=== PATIENT | female | born 2000 | race Caucasian/White ===

== ENCOUNTER 2019-09-02 00:27 | Inpatient (IN) | payer BC, SELFPAY ==
[~2019-09-02] VITALS: Ht 154.9 cm; Wt 88.0 kg
[2019-09-02] MEDS ORDERED: LAMI1TAB9 PO (01:14)
[2019-09-02] MEDS ORDERED: LEXA1TAB2 PO (01:14)
[2019-09-02] MEDS ORDERED: HM V4000 PO ×2 (01:14→02:42)
[2019-09-02] MEDS ORDERED: LEVOTAB10 PO (01:14)
[2019-09-02] MEDS ORDERED: VITA200028 PO (02:42)
[2019-09-02] MEDS ORDERED: PATIENT COMMENTS (02:46)
[2019-09-02] MEDS ORDERED: OLANZapine ORAL DISINTEGRATING TAB 5MG PO PRN (06:30)
[2019-09-02] MEDS ORDERED: traZODone 50 MG TAB PO PRN (06:30)
[2019-09-02] MEDS ORDERED: ACETAMINOPHEN TAB 650MG DOSE (2X325MG) PO PRN (06:30)
[2019-09-02] MEDS ORDERED: MAALOX 30 ML SUSP *UDC PO PRN (06:30)
[2019-09-02] MEDS ORDERED: MOM 30ML SUSPENSION UDC PO PRN (06:30)
[2019-09-02 10:31] VITALS: BP 140/80
--- NOTE | 2019-09-02 17:20 | HPEPDOC ---
General Date of Admission Sep 02, 2019 at 06:20 Date of Service: Sep 02, 2019 Attending Physician: MARIO HUNT MD Chief Complaint The patient is a 18-year-old female admitted with a reason for visit of Unspecified Depressive Disorder. Exam Limitations: No limitations Timing/Duration: Getting worse Severity: Severe Associated Symptoms: Other (labile mood with passive SI) History of Present Illness 18 yo woman with bipolar II disorder with a history of self harm with cutting who presented with labile mood, passive SI and recent L wrist cutting and transferred from an outside hospital to [facility]. She reports some insomnia and stress pertaining to nursing school as well as mood lability but otherwise feels physically well with no chronic physical illnesses. Home Medications Scheduled Ergocalciferol (Vitamin D2) (Vitamin D2) 2,000 Unit Tablet, 2,000 UNIT PO DAILY, (Reported) Escitalopram Oxalate (Lexapro) 20 Mg Tablet, 30 MG PO DAILY, (Reported) Lamotrigine (Lamictal) 200 Mg Tablet, 400 MG PO QAM, (Reported) Levocetirizine Dihydrochloride (Levocetirizine Dihydrochloride) 5 Mg Tablet, 5 MG PO DAILY, (Reported) Miscellaneous Medications [Patient Comments] , (Reported) WILL VERIFY MEDICATINS WITH PHARMACY WHEN THEY OPEN Allergies Coded Allergies: amoxicillin (Verified Allergy, Unknown, 09/02/19) Uncoded Allergies: Lactose Intolerant (Adverse Reaction, Intermediate, 09/02/19) Past Medical History Medical History Bipolar disorder II Surgical History None Family History Significant Family History: No pertinent family hx Social History * Smoker: former Smoker Alcohol: Denies Drugs: marijuana Recent Travel/Sick Contacts: Denies: Recent travel, Recent sick contacts Psychosocial History: Bipolar, Depression, Other (SI) A-FIB/CHADSVASC A-FIB History Current/History of A-Fib/PAF?: No Current PO Anticoag Therapy: No Age/Risk Factor Scoring CHADSVASC: CHADSVASC Response (Comments) Value Age Risk Factor Age < 65 years old 0 Gender Risk Factor Female 1 Hx of CHF No 0 Hx of HTN No 0 Hx of Stroke/TIA/or VTE No 0 Hx of Diabetes No 0 Hx of Vascular Disease No 0 Total 1 Treatment Treatment ordered: NONE Reason Anticoagulant not given: Not indicated/[id number] Review of Systems Constitutional: Denies: Chills, Fever, Night Sweats Eyes: Denies: Pain, Vision change ENT: Denies: Head Aches, Ear Pain, Dysphagia Skin: Denies: Rash, Lesions, Breakdown Pulmonary: Denies: Dyspnea, Cough Cardiovascular: Denies: Chest Pain, Palpitations, Orthopnea, Paroxysmal Noc. Dyspnea, Lt Headedness Gastrointestinal: Denies: Nausea, Vomiting, Abdominal Pain, Diarrhea Genitourinary: Denies: Dysuria, Frequency, Incontinence, Retention Hematologic: Denies: Bruising, Bleeding Excessively Endocrine: Denies: Polydipsia, Polyphagia, Polyuria, Heat Intolerance, Cold Intolerance, Other Endocrine Sx Musculoskeletal: Denies: Neck Pain, Back Pain, Joint Pain, Muscle Pain, Spasms Neurological: Denies: Weakness, Numbness, Change in speech, Confusion Psych: Reports: Depression, Thoughts of Self Harm (with passive suicidal tho ughts in addition to cutting) Physical Examination General Exam: Positive: Alert, No Acute Distress, Other (obese) Eye Exam: Positive: PERRLA, Conjunctiva & lids normal, EOMI; Negative: Sclera icteric ENT Exam: Positive: Atraumatic, Mucous membr. moist/pink, Pharynx Normal Neck Exam: Positive: Supple; Negative: JVD, thyromegaly Chest Exam: Positive: Clear to auscultation, Normal air movement Heart Exam: Positive: Rate Normal, Regular Rhythm, Normal S1, Normal S2; Negative: Murmurs, Rubs Abdomen Exam: Positive: Normal bowel sounds, Soft; Negative: Tenderness, Hepatospenomegaly Extremity Exam: Positive: Normal pulses; Negative: Clubbing, Cyanosis, Edema Skin Exam: Positive: Nl turgor and temperature, Rash Neuro Exam: Positive: Normal Gait, Normal Speech, Cranial Nerves 3-12 NL, Reflexes 2+ Psych Exam: Positive: Oriented x 3; Negative: Mood NL (depressed mood, flat affect at this time) Vital Signs Vital Signs Date Time Temp Pulse Resp B/P (MAP) Pulse Ox O2 Delivery O2 Flow Rate FiO2 09/02/19 11:18 Room Air 09/02/19 10:31 98.1 88 18 140/80 (100) 09/02/19 06:13 99 Assessment/Plan 18 yo woman with bipolar II disorder with a history of self harm with cutting who presented with labile mood, passive SI and recent L wrist cutting and transferred from an outside hospital to [facility]. She reports some insomnia and stress pertaining to nursing school as well as mood lability but otherwise feels physically well with no chronic physical illnesses. Medicine was asked to do a physical examination that was grossly normal without any identifiable ongoing medical issues at this time. Will sign off at this time. Bipolar: -Managed by primary psych team Insomina: -Managed by primary psych team Will sign off at this time. Plan / VTE VTE Prophylaxis Ordered?: No VTE Exclusion Mechanical Proph: Low Risk for VTE VTE Exclusion Pharmacological: At Low Risk for VTE MARIO HUNT MD Sep 02, 2019 17:20
[2019-09-02 17:58] VITALS: BP 132/67
[2019-09-03 05:37] VITALS: BP 129/59
[2019-09-03] MEDS ORDERED: CETIRIZINE (ZyrTEC) 10 MG TAB PO SCH (09:00)
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
[2019-09-03] MEDS ORDERED: hydrOXYzine 25 MG TAB PO PRN (10:00)
[2019-09-03] MEDS ORDERED: PILL CUTTER 1 EACH XX PRN (10:15)
--- NOTE | 2019-09-03 13:46 | MHDSPDOC ---
[facility] Discharge Summary Discharge Summary DATE OF ADMISSION: Sep 02, 2019 at 06:20 DATE OF DISCHARGE: 09/03/19 Please see h/p for same day discharge Vital Signs/I&Os Vital Signs Date Time Temp Pulse Resp B/P (MAP) Pulse Ox O2 Delivery O2 Flow Rate FiO2 09/03/19 05:37 98.2 50 16 129/59 (82) Room Air 09/02/19 06:13 99 Medications Scheduled Ergocalciferol (Vitamin D2) (Vitamin D2) 2,000 Unit Tablet, 2,000 UNIT PO DAILY, (Reported) Escitalopram Oxalate (Lexapro) 20 Mg Tablet, 30 MG PO DAILY, (Reported) Lamotrigine (Lamictal) 200 Mg Tablet, 400 MG PO QAM, (Reported) Levocetirizine Dihydrochloride (Levocetirizine Dihydrochloride) 5 Mg Tablet, 5 MG PO DAILY, (Reported) Miscellaneous Medications [Patient Comments] , (Reported) WILL VERIFY MEDICATINS WITH PHARMACY WHEN THEY OPEN Allergies Coded Allergies: amoxicillin (Verified Allergy, Unknown, 09/02/19) lactose (Verified Adverse Reaction, Mild, LACTOSE INTOLERANT, 09/03/19) NOLAN LUU DO Sep 03, 2019 13:46
[2019-09-03] MEDS ORDERED: VITAMIN D 1,000 INTERNATIONAL UNITS TABLET PO ONE (14:00)
[2019-09-03] MEDS ORDERED: lamoTRIgine 100MG TAB PO ONE (14:00)
[2019-09-03] MEDS ORDERED: ESCITALOPRAM OXALATE 10 MG TAB (LEXAPRO) PO ONE (14:00)
[2019-09-04] MEDS ORDERED: ESCITALOPRAM OXALATE 10 MG TAB (LEXAPRO) PO SCH (09:00)
[2019-09-04] MEDS ORDERED: VITAMIN D 1,000 INTERNATIONAL UNITS TABLET PO SCH (09:00)
[2019-09-04] MEDS ORDERED: lamoTRIgine 100MG TAB PO SCH (09:00)
== END 2019-09-03 16:20 | disposition home or self-care (01) | DRG 755 ==
LOC: M ED 00:27 → M ED INP 06:20 → M PSY 10:20
PROVIDERS: ADMIT Psychiatry & Neurology Addiction Medicine; ATTEND Psychiatry & Neurology Addiction Medicine
DX: F43.25 Adjustment disorder with mixed disturbance of emotions and conduct (principal); F60.3 Borderline personality disorder; Z91.5 Personal history of self-harm; G47.00 Insomnia, unspecified; Z88.1 Allergy status to other antibiotic agents; Z87.891 Personal history of nicotine dependence; Z79.899 Other long term (current) drug therapy; E73.9 Lactose intolerance, unspecified